=== PATIENT | female | born 1950 | race Caucasian/White ===

== ENCOUNTER → 2022-02-06 | Outpatient (CLI) | payer MEDICARE, OTHER ==
[~2022-02-06] MED LIST: MASON NATURAL2000 IU PO; MULTI VITAMINS1 TAB PO; OSCAL 500 TAB500 MG PO; PHARMASSURE ZIN50 MG PO; PRILOSEC 20MG20 MG PO; PYRIDIUM 100MG100 MG PO; QUERCETIN PO; VITAMINC1000TA
== END ==
LOC: COL.RAD 06:44
DX: N28.1 Cyst of kidney, acquired (principal); N20.0 Calculus of kidney; N32.9 Bladder disorder, unspecified; Z90.710 Acquired absence of both cervix and uterus
CPT/HCPCS: Q9967

== ENCOUNTER 2022-02-07 10:31 | Day surgery (SDC) | payer MEDICARE, OTHER ==
[~2022-02-07] VITALS: Ht 162.6 cm; Wt 71.0 kg
[2022-02-07 11:31] VITALS: BP 138/74; PULSE 79; TEMP 97.6
[2022-02-07] MEDS ORDERED: VITAMINC1000TA (11:49)
[2022-02-07] MEDS ORDERED: PRILOSEC 20MG20 MG PO (11:49)
[2022-02-07] MEDS ORDERED: MASON NATURAL2000 IU PO (11:50)
[2022-02-07] MEDS ORDERED: PHARMASSURE ZIN50 MG PO (11:51)
[2022-02-07] MEDS ORDERED: OSCAL 500 TAB500 MG PO (11:57)
[2022-02-07] MEDS ORDERED: QUERCETIN PO (11:57)
[2022-02-07] MEDS ORDERED: MULTI VITAMINS1 TAB PO (11:58)
[2022-02-07] MEDS ORDERED: PYRIDIUM 100MG100 MG PO (14:27)
[2022-02-07 16:10] VITALS: BP 147/73; PULSE 88; TEMP 98.3
--- NOTE | 2022-02-07 16:10 | NUR ---
PT TO BAY 6 PER CART FROM PACU. RECEIVED REPORT FROM DEVIN MALONE. VS OBTAINED. PT TOLERATING ICE CHIPS. PT TO RESTROOM AND VOIDED WITHOUT DIFFICULTY. PT BACK TO CART AND DENIES ANY ADDITIONAL NEEDS AT THIS TIME. PT RESTING COMFORTABLY. CALL LIGHT WITHIN REACH. WILL CONTINUE TO MONITOR PT.
[2022-02-07 16:25] VITALS: BP 131/710; PULSE 86
--- NOTE | 2022-02-07 16:25 | NUR ---
PT CONTINUES TO REST COMFORTABLY. TOLERATING WATER WITHOUT DIFFICULTY. DENIES ANYTHING TO EAT AT THIS TIME. WILL CONTINUE TO MONITOR PT. AT BEDSIDE,
[2022-02-07 16:40] VITALS: BP 123/78; PULSE 80
--- NOTE | 2022-02-07 16:40 | NUR ---
PT REQUESTING MUFFIN. PT UP TO RESTROOM AND VOIDED WITHOUT DIFFICULTY. WILL CONTINUE TO MONITOR PT.
[2022-02-07 16:55] VITALS: BP 117/67; PULSE 81
--- NOTE | 2022-02-07 16:55 | NUR ---
IV DC'D. PT TOLERATED WELL.
--- NOTE | 2022-02-07 16:55 | NUR ---
PT TOLERATING MUFFIN. STATES SHE IS READY FOR DISCHARGE.
--- NOTE | 2022-02-07 17:05 | NUR ---
DISCHARGE EDUCATION COMPLETED WITH PT AND HER . VERBALIZED UNDERSTANDING OF HOME AND FOLLOW UP CARE. ALL QUESTIONS ANSWERED. DISCHARGE PAPERWORK GIVEN TO PT.
--- NOTE | 2022-02-07 17:20 | NUR ---
PT OFF UNIT PER WHEELCHAIR. PT DISCHARGE TO HOME WITH PER PERSONAL VEHICLE.
[2022-02-07 17:31] VITALS: BP 143/86; PULSE 80
== END 2022-02-07 17:20 | disposition home or self-care (01) ==
LOC: SDCO 10:31
DX: Z12.11 Encounter for screening for malignant neoplasm of colon (principal); N30.21 Other chronic cystitis with hematuria; K63.89 Other specified diseases of intestine; R39.15 Urgency of urination; K21.9 Gastro-esophageal reflux disease without esophagitis; Z79.899 Other long term (current) drug therapy
CPT/HCPCS: 45378; 52234; G0121; C1769; J0360; J0690; J1100; J1170; J2405; J2704; J3010; J7120